=== PATIENT | male | born 1950 | race African-American/Black ===

== ENCOUNTER 2021-05-29 00:12 | Emergency (ER) | payer MEDICARE ==
[~2021-05-29] VITALS: Ht 185.4 cm; Wt 75.0 kg
[2021-05-29] MEDS ORDERED: SODIUM CHLORIDE 0.9% 1,000 ML IV ONE (00:45)
[2021-05-29 01:03] LABS: BASOPHILS % 0.3 % (0.0-2.0); EOSINOPHILS % 0.1 % (0.0-5.0); HEMATOCRIT. 42.5 % (42.0-52.0); HEMOGLOBIN. 14.2 g/dL (14.0-18.0); LYMPHOCYTES % 25.1 % (20.0-50.0); MEAN CORPUSCULAR HEMOGLOBIN 29.4 pg (28.0-32.0); MEAN CORPUSCULAR VOLUME 87.6 fL (80.0-94.0); MEAN PLATELET VOLUME 8.7 fl (7.4-10.4); MONOCYTES % 7.3 % (2.0-8.0); NEUTROPHILS % 67.2 % (40.0-76.0); PLATELET 122 x1000/uL (130-400); RED BLOOD CELL COUNT 4.85 mill/uL (4.7-6.1); RED CELL DISTRIBUTION WIDTH 13.5 % (11.6-14.6)
[2021-05-29 01:16] LABS: CHLORIDE 109 mEq/L (98-107)
[2021-05-29 03:45] VITALS: BP 126/61
== END 2021-05-29 04:15 | disposition home or self-care (01) ==
LOC: ER 00:12
DX: R42 Dizziness and giddiness (principal); R53.1 Weakness; R11.2 Nausea with vomiting, unspecified; F14.10 Cocaine abuse, uncomplicated; F17.290 Nicotine dependence, other tobacco product, uncomplicated; I10 Essential (primary) hypertension
CPT/HCPCS: 36415; 71045; 80053; 84484; 85025; 93005; 99283; 99406; J7030; 99284

== ENCOUNTER 2022-10-16 05:44 | Inpatient (IN) | payer MEDICARE ==
[~2022-10-16] VITALS: Ht 180.3 cm; Wt 62.6 kg
[2022-10-16] MEDS ORDERED: SPIRONOLACTONE 25MG TABLET PO STA (06:16)
[2022-10-16] MEDS ORDERED: CARVEDILOL 6.25 MG TABLET PO ONE (06:30)
[2022-10-16] MEDS ORDERED: HYDRALAZINE HCL 25MG TABLET PO ONE (06:30)
[2022-10-16] MEDS ORDERED: ENALAPRIL 5MG TABLET PO SCH (06:30)
[2022-10-16 06:42] LABS: BASOPHILS % 0.2 % (0.0-2.0); EOSINOPHILS % 0.4 % (0.0-5.0); HEMATOCRIT. 38.7 % (42.0-52.0); HEMOGLOBIN. 12.7 g/dL (14.0-18.0); MEAN CORPUSCULAR HEMOGLOBIN 29.2 pg (28.0-32.0); MEAN CORPUSCULAR VOLUME 88.8 fL (80.0-94.0); MEAN PLATELET VOLUME 10.3 fl (7.4-10.4); MONOCYTES % 7.6 % (2.0-8.0); NEUTROPHILS % 52.8 % (40.0-76.0); PLATELET 153 x1000/uL (130-400); RED BLOOD CELL COUNT 4.36 mill/uL (4.7-6.1)
[2022-10-16 06:52] LABS: CHLORIDE 109 mEq/L (98-107)
[2022-10-16 06:55] LABS: CLARITY URINE CLOUDY (CLEAR); COLOR URINE DARK YELLOW (YELLOW); KETONES URINE TRACE (NEGATIVE); LEUKOCYTE ESTERASE URINE 1+ (NEGATIVE); NITRITE URINE POSITIVE (NEGATIVE); OCCULT BLOOD URINE NEGATIVE (NEGATIVE); PH URINE 5.5 (4.5-8.0); PROTEIN URINE 1+ (NEGATIVE)
[2022-10-16] MEDS ORDERED: ACETAMINOPHEN 325MG TABLET PO ONE (07:15)
[2022-10-16] MEDS ORDERED: NITROGLYCERIN OINT 1GM/INCH UDPKT TD ONE (07:30)
[2022-10-16] MEDS ORDERED: ASPIRIN 325MG EC TABLET PO ONE (07:30)
[2022-10-16] MEDS ORDERED: FUROSEMIDE 20MG/2ML VIAL IVP ONE (08:30)
[2022-10-16] MEDS ORDERED: CLONIDINE 0.1MG TABLET PO PRN (13:45)
[2022-10-16] MEDS ORDERED: GUAIFENESIN 200MG/10ML SUGAR FREE UDC PO PRN (13:45)
[2022-10-16] MEDS ORDERED: ACETAMINOPHEN 325MG TABLET PO PRN ×2 (13:45)
[2022-10-16] MEDS ORDERED: IPRATROPIUM/ALBUTEROL 0.5-3(2.5)MG/3ML NEB HHN PRN (13:45)
[2022-10-16] MEDS ORDERED: ONDANSETRON HCL 4MG/2ML INJ IV PRN (13:45)
[2022-10-16] MEDS ORDERED: MAGNESIUM/ALUMINUM HYDROXIDE/SIMETHICONE 30ML UDC PO PRN (13:45)
[2022-10-16] MEDS ORDERED: DIPHENHYDRAMINE 50MG/ML VIAL IV PRN (13:45)
[2022-10-16] MEDS: GABAPENTIN 300MG CAPSULE PO SCH ×2 (14:00→21:06)
[2022-10-16] MEDS ORDERED: HYDROCODONE/ACETAMINOPHEN 5/325MG TABLET PO PRN (14:00)
[2022-10-16] MEDS ORDERED: MAGNESIUM HYDROXIDE 400MG/5ML 30ML UDC PO PRN (14:00)
[2022-10-16] MEDS ORDERED: NALOXONE HCL 0.4MG/ML VIAL IV PRN (14:15)
[2022-10-16] MEDS: SODIUM CHLORIDE 0.9% INJ 3ML FLUSH IVF SCH ×2 (14:45→21:07)
[2022-10-16] MEDS ORDERED: ENOXAPARIN 40MG/0.4ML SYR SUBCUT SCH (15:00)
[2022-10-16 16:00] VITALS: BP 138/89
[2022-10-16] MEDS: FUROSEMIDE 20MG/2ML VIAL IVP SCH (17:37)
[2022-10-16] MEDS: DOCUSATE SODIUM 100MG CAPSULE PO SCH (17:38)
[2022-10-16 18:29] VITALS: BP 131/78
[2022-10-16] MEDS ORDERED: CARV3.1242 MT (18:46)
[2022-10-16] MEDS ORDERED: ATOR10TA69 MT (18:46)
[2022-10-16] MEDS ORDERED: SPIR25TA6 MT (18:46)
[2022-10-16] MEDS ORDERED: GABA-529 MT (18:46)
[2022-10-16] MEDS ORDERED: ZOLPIDEM TARTRATE 5MG TABLET PO PRN ×2 (19:00→21:00)
[2022-10-16] MEDS ORDERED: BENZONATATE 100MG CAPSULE PO PRN (19:00)
[2022-10-16] MEDS ORDERED: PROMETHAZINE/DEXTROMETHORPHAN 6.25-15MG/5ML BOTTLE 120ML PO PRN (19:00)
[2022-10-16 20:53] VITALS: BP 144/95
[2022-10-16] MEDS: ATORVASTATIN CALCIUM 40MG TABLET PO SCH (21:06)
[2022-10-16] MEDS: CARVEDILOL 6.25 MG TABLET PO SCH (21:06)
[2022-10-16] MEDS: BUPROPION HCL 150MG SR TABLET PO SCH (21:06)
[2022-10-16] MEDS ORDERED: ALBUTEROL (0.083%) 2.5MG/3ML NEB HHN PRN (21:15)
[2022-10-16] MEDS ORDERED: IPRATROPIUM BROMIDE (0.02%) 0.5MG/2.5ML NEB HHN PRN (21:15)
[2022-10-17] VITALS: BP 122/68
[2022-10-17] MEDS: BUDESONIDE 0.5MG/2ML NEB HHN SCH ×3 (01:49→21:00)
[2022-10-17 04:00] VITALS: BP 134/86
[2022-10-17] MEDS: SODIUM CHLORIDE 0.9% INJ 3ML FLUSH IVF SCH ×3 (05:05→21:55)
[2022-10-17] MEDS: GABAPENTIN 300MG CAPSULE PO SCH ×3 (05:05→21:03)
[2022-10-17 05:37] LABS: BASOPHILS % 0.3 % (0.0-2.0); EOSINOPHILS % 0.9 % (0.0-5.0); HEMATOCRIT. 35.3 % (42.0-52.0); HEMOGLOBIN. 11.7 g/dL (14.0-18.0); LYMPHOCYTES % 41.1 % (20.0-50.0); MEAN CORPUSCULAR HEMOGLOBIN 29.2 pg (28.0-32.0); MEAN PLATELET VOLUME 10.1 fl (7.4-10.4); MONOCYTES % 9.6 % (2.0-8.0); NEUTROPHILS % 48.1 % (40.0-76.0); PLATELET 136 x1000/uL (130-400); RED BLOOD CELL COUNT 4.02 mill/uL (4.7-6.1); RED CELL DISTRIBUTION WIDTH 13.5 % (11.6-14.6)
[2022-10-17 05:42] LABS: CHLORIDE 106 mEq/L (98-107)
[2022-10-17 08:00] VITALS: BP 144/97
[2022-10-17] MEDS: BUPROPION HCL 150MG SR TABLET PO SCH ×2 (09:00→21:55)
[2022-10-17] MEDS: FUROSEMIDE 20MG/2ML VIAL IVP SCH ×2 (09:00→18:11)
[2022-10-17 10:18] LABS: *AMPHETAMINES SCREEN URINE NEGATIVE (NEGATIVE); *BARBITURATES SCREEN URINE NEGATIVE (NEGATIVE); *BENZODIAZEPINES SCREEN URINE NEGATIVE (NEGATIVE); *COCAINE SCREEN URINE PRESUMTIVE POSITIVE (NEGATIVE); CANNABINOID URINE SCREEN PRESUMTIVE POSITIVE (NEGATIVE); METHADONE URINE SCREEN NEGATIVE (NEGATIVE); OPIATES URINE SCREEN NEGATIVE (NEGATIVE); PHENCYCLIDINE URINE SCREEN NEGATIVE (NEGATIVE)
[2022-10-17] MEDS: SPIRONOLACTONE 25MG TABLET PO SCH (10:31)
[2022-10-17] MEDS: CARVEDILOL 6.25 MG TABLET PO SCH ×2 (10:32→21:04)
[2022-10-17] MEDS: DOCUSATE SODIUM 100MG CAPSULE PO SCH ×2 (10:32→18:11)
[2022-10-17 12:00] VITALS: BP 139/75
[2022-10-17] MEDS ORDERED: ENOXAPARIN 30MG/0.3ML SYR SUBCUT SCH (15:00)
[2022-10-17 16:00] VITALS: BP 110/65
[2022-10-17 20:00] VITALS: BP 124/79
[2022-10-17] MEDS: ATORVASTATIN CALCIUM 40MG TABLET PO SCH (21:03)
[2022-10-18] VITALS: BP 107/69
[2022-10-18 04:00] VITALS: BP 116/66
[2022-10-18] MEDS: GABAPENTIN 300MG CAPSULE PO SCH ×2 (05:10→13:55)
[2022-10-18 08:00] VITALS: BP 113/57
[2022-10-18 08:11] LABS: CHLORIDE 106 mEq/L (98-107)
[2022-10-18] MEDS: SPIRONOLACTONE 25MG TABLET PO SCH (09:00)
[2022-10-18] MEDS: CARVEDILOL 6.25 MG TABLET PO SCH (09:00)
[2022-10-18] MEDS: DOCUSATE SODIUM 100MG CAPSULE PO SCH (09:24)
[2022-10-18] MEDS: FUROSEMIDE 20MG/2ML VIAL IVP SCH (09:24)
[2022-10-18] MEDS: BUPROPION HCL 150MG SR TABLET PO SCH (09:25)
[2022-10-18] MEDS: BUDESONIDE 0.5MG/2ML NEB HHN SCH (09:27)
[2022-10-18 12:00] VITALS: BP 128/57
[2022-10-18 13:05] VITALS: BP 128/57
[2022-10-21] MEDS ORDERED: LOSA25TA3 PO (15:49)
[2022-10-21] MEDS ORDERED: FURO-151 PO (15:49)
[2022-10-21] MEDS ORDERED: SPIR25TA6 MT (15:49)
== END 2022-10-18 14:20 | disposition home or self-care (01) | DRG 291 ==
LOC: ER 05:44 → 7WST 08:56 → EDBEDREQ 09:16 → EDBEDREQTM 09:16
PROVIDERS: ADMIT Internal Medicine; ATTEND Internal Medicine
DX: I11.0 Hypertensive heart disease with heart failure (principal); I50.23 Acute on chronic systolic (congestive) heart failure; Z20.822 Contact with and (suspected) exposure to COVID-19; I42.0 Dilated cardiomyopathy; J44.9 Chronic obstructive pulmonary disease, unspecified; E78.00 Pure hypercholesterolemia, unspecified; I25.10 Atherosclerotic heart disease of native coronary artery without angina pectoris; R74.01 Elevation of levels of liver transaminase levels; F17.200 Nicotine dependence, unspecified, uncomplicated; F14.10 Cocaine abuse, uncomplicated; Z79.899 Other long term (current) drug therapy; Z91.14 Patient's other noncompliance with medication regimen
CPT/HCPCS: 36415; 71045; 80048; 80053; 80305; 81003; 83735; 83880; 84484; 85025; 87426; 87804; 93005; 93306; 94640; 99285; C9803; J1650; J1940; J7626

== ENCOUNTER 2022-10-19 06:46 | Inpatient (IN) | payer MEDICARE ==
[~2022-10-19] VITALS: Ht 180.3 cm; Wt 62.6 kg
[~2022-10-19 06:46] MED LIST: ATOR10TA69 MT; CARV3.1242 MT; GABA-529 MT; SPIR25TA6 MT
[2022-10-19] MEDS ORDERED: ALBUTEROL (0.083%) 2.5MG/3ML NEB HHN STA (07:26)
[2022-10-19] MEDS ORDERED: IPRATROPIUM BROMIDE (0.02%) 0.5MG/2.5ML NEB HHN STA (07:26)
[2022-10-19] MEDS ORDERED: NITROGLYCERIN 0.4MG TABLET SL SL PRN (07:45)
[2022-10-19 08:51] LABS: BASOPHILS % 0.4 % (0.0-2.0); EOSINOPHILS % 1.1 % (0.0-5.0); HEMATOCRIT. 36.8 % (42.0-52.0); HEMOGLOBIN. 12.1 g/dL (14.0-18.0); LYMPHOCYTES % 41.1 % (20.0-50.0); MEAN CORPUSCULAR HEMOGLOBIN 29.1 pg (28.0-32.0); MEAN CORPUSCULAR VOLUME 88.3 fL (80.0-94.0); NEUTROPHILS % 49.4 % (40.0-76.0); PLATELET 152 x1000/uL (130-400); RED BLOOD CELL COUNT 4.17 mill/uL (4.7-6.1); RED CELL DISTRIBUTION WIDTH 13.6 % (11.6-14.6)
[2022-10-19 09:00] LABS: CHLORIDE 105 mEq/L (98-107)
[2022-10-19] MEDS ORDERED: ALBUTEROL (0.083%) 2.5MG/3ML NEB HHN NR (09:30)
[2022-10-19] MEDS ORDERED: IPRATROPIUM BROMIDE (0.02%) 0.5MG/2.5ML NEB HHN NR (09:30)
[2022-10-19] MEDS ORDERED: DOCUSATE SODIUM 100MG CAPSULE PO PRN (11:45)
[2022-10-19] MEDS ORDERED: ACETAMINOPHEN 325MG TABLET PO PRN ×2 (11:45)
[2022-10-19] MEDS ORDERED: CLONIDINE 0.1MG TABLET PO PRN (11:45)
[2022-10-19] MEDS ORDERED: IPRATROPIUM/ALBUTEROL 0.5-3(2.5)MG/3ML NEB NEB PRN (11:45)
[2022-10-19] MEDS ORDERED: GUAIFENESIN 200MG/10ML SUGAR FREE UDC PO PRN (11:45)
[2022-10-19] MEDS ORDERED: NALOXONE HCL 0.4MG/ML VIAL IV PRN (11:45)
[2022-10-19] MEDS ORDERED: MAGNESIUM/ALUMINUM HYDROXIDE/SIMETHICONE 30ML UDC PO PRN (11:45)
[2022-10-19] MEDS ORDERED: ONDANSETRON HCL 4MG/2ML INJ IV PRN (11:45)
[2022-10-19] MEDS ORDERED: HYDROCODONE/ACETAMINOPHEN 5/325MG TABLET PO PRN (11:45)
[2022-10-19] MEDS: ENOXAPARIN 40MG/0.4ML SYR SUBCUT SCH (12:20)
[2022-10-19] MEDS: CARVEDILOL 3.125 MG TABLET PO SCH ×2 (12:20→21:58)
[2022-10-20] MEDS: CARVEDILOL 3.125 MG TABLET PO SCH ×2 (09:15→21:11)
[2022-10-20 11:30] VITALS: BP 128/68
[2022-10-20 12:00] VITALS: BP 128/68
[2022-10-20] MEDS: ENOXAPARIN 40MG/0.4ML SYR SUBCUT SCH (15:17)
[2022-10-20 16:00] VITALS: BP 135/85
[2022-10-20] MEDS ORDERED: INFLUENZA VACCINE 05/PF 0.5 ML SYRINGE IM ONE (17:00)
[2022-10-20] MEDS ORDERED: PNEUMOCOCCAL 23-VAL P-SAC VAC 0.5 ML IM ONE (17:00)
[2022-10-20 17:12] LABS: BASOPHILS % 0.3 % (0.0-2.0); EOSINOPHILS % 1.1 % (0.0-5.0); HEMATOCRIT. 34.6 % (42.0-52.0); HEMOGLOBIN. 11.4 g/dL (14.0-18.0); MEAN CORPUSCULAR HEMOGLOBIN 29.3 pg (28.0-32.0); MEAN CORPUSCULAR VOLUME 89.4 fL (80.0-94.0); MEAN PLATELET VOLUME 10.9 fl (7.4-10.4); MONOCYTES % 9.2 % (2.0-8.0); NEUTROPHILS % 46.4 % (40.0-76.0); PLATELET 132 x1000/uL (130-400); RED BLOOD CELL COUNT 3.87 mill/uL (4.7-6.1); RED CELL DISTRIBUTION WIDTH 13.7 % (11.6-14.6)
[2022-10-20 17:45] LABS: CHLORIDE 109 mEq/L (98-107)
[2022-10-20 17:47] LABS: CREATINE KINASE MB FRACTION 1.3 ng/mL (0.5-3.6)
[2022-10-20 17:57] LABS: T4 FREE 1.32 ng/dL (0.76-1.46)
[2022-10-20 20:00] VITALS: BP 138/92
[2022-10-20] MEDS ORDERED: ALBUTEROL (0.083%) 2.5MG/3ML NEB HHN PRN (20:00)
[2022-10-20] MEDS ORDERED: IPRATROPIUM BROMIDE (0.02%) 0.5MG/2.5ML NEB HHN PRN (20:00)
[2022-10-20 23:55] LABS: CREATINE KINASE MB FRACTION 1.2 ng/mL (0.5-3.6)
[2022-10-21] VITALS (7 sets, daily range): BP systolic 131–152; BP diastolic 83–104
[2022-10-21 06:22] LABS: CHLORIDE 110 mEq/L (98-107)
[2022-10-21 06:36] LABS: CREATINE KINASE 51 IU/L (39-308); CREATINE KINASE MB FRACTION 1.3 ng/mL (0.5-3.6); PHOSPHORUS 3.1 mg/dL (2.5-4.9)
[2022-10-21 07:07] LABS: HEMATOCRIT. 33.6 % (42.0-52.0); HEMOGLOBIN. 11.1 g/dL (14.0-18.0); MEAN CORPUSCULAR HEMOGLOBIN 29.2 pg (28.0-32.0); MEAN CORPUSCULAR VOLUME 88.2 fL (80.0-94.0); MEAN PLATELET VOLUME 10.7 fl (7.4-10.4); PLATELET 129 x1000/uL (130-400); RED CELL DISTRIBUTION WIDTH 13.9 % (11.6-14.6)
[2022-10-21] MEDS: CARVEDILOL 3.125 MG TABLET PO SCH (08:49)
[2022-10-21] MEDS ORDERED: LOSARTAN POTASSIUM 25 MG TABLET PO SCH (11:15)
[2022-10-21] MEDS: ENOXAPARIN 40MG/0.4ML SYR SUBCUT SCH (12:18)
[2022-10-21] MEDS ORDERED: FURO-151 PO (15:49)
[2022-10-21] MEDS ORDERED: LOSA25TA3 PO (15:49)
[2022-10-21] MEDS ORDERED: SPIR25TA6 MT (15:49)
[2022-10-21 17:07] LABS: PLATELET ESTIMATE SLIGHTLY DECREASED
== END 2022-10-21 20:45 | disposition home or self-care (01) | DRG 291 ==
LOC: ER 06:46 → MICUSO 11:07 → EDBEDREQTM 11:08 → EDBEDREQ 11:08 → SUPCPDRO 11:24 → 7WST 10-20 11:21
PROVIDERS: ADMIT Internal Medicine; ATTEND Internal Medicine
PROC: 3E02340 Introduction of Influenza Vaccine into Muscle, Percutaneous Approach (ICD-10-PCS; principal; 2022-10-20)
PROC: 3E0234Z Introduction of Serum, Toxoid and Vaccine into Muscle, Percutaneous Approach (ICD-10-PCS; 2022-10-20)
DX: I11.0 Hypertensive heart disease with heart failure (principal); I50.23 Acute on chronic systolic (congestive) heart failure; I42.0 Dilated cardiomyopathy; I34.0 Nonrheumatic mitral (valve) insufficiency; H54.7 Unspecified visual loss; F14.90 Cocaine use, unspecified, uncomplicated; I25.10 Atherosclerotic heart disease of native coronary artery without angina pectoris; E78.00 Pure hypercholesterolemia, unspecified; F17.200 Nicotine dependence, unspecified, uncomplicated; Z20.822 Contact with and (suspected) exposure to COVID-19; Z82.49 Family history of ischemic heart disease and other diseases of the circulatory system; Z23 Encounter for immunization
CPT/HCPCS: 36415; 71045; 80048; 80053; 80061; 82550; 82553; 83036; 83735; 83880; 84100; 84439; 84443; 84484; 85025; 85379; 87340; 87426; 87804; 90686; 90732; 93005; 94640; 99285; J1650

== ENCOUNTER 2022-11-13 12:07 | Inpatient (IN) | payer MEDICARE ==
[~2022-11-13] VITALS: Ht 180.3 cm; Wt 65.3 kg
[~2022-11-13 12:07] MED LIST changes: -CARV3.1242 MT; +FURO-151 PO; +LOSA25TA3 PO
[2022-11-13 20:57] LABS: BASOPHILS % 0.4 % (0.0-2.0); EOSINOPHILS % 0.2 % (0.0-5.0); HEMATOCRIT. 43.2 % (42.0-52.0); HEMOGLOBIN. 13.9 g/dL (14.0-18.0); LYMPHOCYTES % 28.4 % (20.0-50.0); MEAN CORPUSCULAR HEMOGLOBIN 28.5 pg (28.0-32.0); MEAN CORPUSCULAR VOLUME 88.4 fL (80.0-94.0); MEAN PLATELET VOLUME 9.9 fl (7.4-10.4); MONOCYTES % 7.3 % (2.0-8.0); NEUTROPHILS % 63.7 % (40.0-76.0); PLATELET 158 x1000/uL (130-400); RED BLOOD CELL COUNT 4.88 mill/uL (4.7-6.1); RED CELL DISTRIBUTION WIDTH 14.6 % (11.6-14.6)
[2022-11-13 21:04] LABS: CHLORIDE 107 mEq/L (98-107)
[2022-11-14] MEDS ORDERED: FUROSEMIDE 40MG TABLET PO ONE
[2022-11-14] MEDS ORDERED: DOCUSATE SODIUM 100MG CAPSULE PO PRN (02:00)
[2022-11-14] MEDS ORDERED: MAGNESIUM/ALUMINUM HYDROXIDE/SIMETHICONE 30ML UDC PO PRN (02:00)
[2022-11-14] MEDS ORDERED: CLONIDINE 0.1MG TABLET PO PRN (02:00)
[2022-11-14] MEDS ORDERED: ACETAMINOPHEN 325MG TABLET PO PRN (02:00)
[2022-11-14] MEDS ORDERED: IPRATROPIUM/ALBUTEROL 0.5-3(2.5)MG/3ML NEB NEB PRN (02:00)
[2022-11-14] MEDS ORDERED: ONDANSETRON HCL 4MG/2ML INJ IV PRN (02:00)
[2022-11-14] MEDS ORDERED: GUAIFENESIN 200MG/10ML SUGAR FREE UDC PO PRN (02:00)
[2022-11-14] MEDS ORDERED: ALBUTEROL (0.083%) 2.5MG/3ML NEB HHN PRN (02:30)
[2022-11-14] MEDS ORDERED: IPRATROPIUM BROMIDE (0.02%) 0.5MG/2.5ML NEB HHN PRN (02:30)
[2022-11-14] MEDS ORDERED: FUROSEMIDE 40MG TABLET PO NR (03:00)
[2022-11-14 06:35] LABS: CLARITY URINE CLEAR (CLEAR); COLOR URINE YELLOW (YELLOW); KETONES URINE NEGATIVE (NEGATIVE); LEUKOCYTE ESTERASE URINE NEGATIVE (NEGATIVE); NITRITE URINE NEGATIVE (NEGATIVE); OCCULT BLOOD URINE NEGATIVE (NEGATIVE); PROTEIN URINE NEGATIVE (NEGATIVE); SPECIFIC GRAVITY URINE 1.009 (1.005-1.030); UROBILINOGEN URINE 0.2 E.U./dL (0.2-1.0)
[2022-11-14 09:35] LABS: *AMPHETAMINES SCREEN URINE NEGATIVE (NEGATIVE); *BARBITURATES SCREEN URINE NEGATIVE (NEGATIVE); *BENZODIAZEPINES SCREEN URINE NEGATIVE (NEGATIVE); *COCAINE SCREEN URINE PRESUMTIVE POSITIVE (NEGATIVE); CANNABINOID URINE SCREEN NEGATIVE (NEGATIVE); METHADONE URINE SCREEN NEGATIVE (NEGATIVE); OPIATES URINE SCREEN NEGATIVE (NEGATIVE); PHENCYCLIDINE URINE SCREEN NEGATIVE (NEGATIVE)
[2022-11-14 09:45] LABS: BASOPHILS % 0.3 % (0.0-2.0); EOSINOPHILS % 0.2 % (0.0-5.0); HEMATOCRIT. 39.9 % (42.0-52.0); HEMOGLOBIN. 13.1 g/dL (14.0-18.0); LYMPHOCYTES % 30.2 % (20.0-50.0); MEAN CORPUSCULAR HEMOGLOBIN 28.8 pg (28.0-32.0); MEAN PLATELET VOLUME 9.9 fl (7.4-10.4); MONOCYTES % 6.9 % (2.0-8.0); NEUTROPHILS % 62.4 % (40.0-76.0); PLATELET 150 x1000/uL (130-400); RED BLOOD CELL COUNT 4.53 mill/uL (4.7-6.1); RED CELL DISTRIBUTION WIDTH 14.2 % (11.6-14.6)
[2022-11-14] MEDS: FUROSEMIDE 40MG/4ML VIAL IV SCH ×2 (09:45→17:00)
[2022-11-14] MEDS: ENOXAPARIN 30MG/0.3ML SYR SUBCUT SCH (09:45)
[2022-11-14] MEDS: THIAMINE HCL 100MG TABLET PO SCH (09:46)
[2022-11-14 10:04] LABS: T4 FREE 1.63 ng/dL (0.76-1.46)
[2022-11-14] MEDS ORDERED: NITROGLYCERIN 50MCG/ML 10ML VIAL (CATH LAB) IV ONE (10:06)
[2022-11-14] MEDS ORDERED: NICARDIPINE 100MCG/ML 10ML VIAL (CATH LAB) IV ONE (10:06)
[2022-11-14 10:08] LABS: PHOSPHORUS 3.2 mg/dL (2.5-4.9)
[2022-11-14] MEDS ORDERED: IPRATROPIUM/ALBUTEROL 0.5-3(2.5)MG/3ML NEB HHN SCH (12:00)
[2022-11-14] MEDS: LOSARTAN POTASSIUM 25 MG TABLET PO SCH (12:30)
[2022-11-14 13:50] LABS: HEPATITIS B SURFACE ANTIGEN NEGATIVE
[2022-11-14] MEDS ORDERED: MIDAZOLAM HCL 2 MG/2 ML VIAL ONE (16:27)
[2022-11-14] MEDS ORDERED: HEPARIN 1000 UNITS/ML 10ML ONE (16:27)
[2022-11-14] MEDS ORDERED: IODIXANOL 320MG/ML 100 ML BOTTLE IV ONE (16:27)
[2022-11-14] MEDS ORDERED: FENTANYL CITRATE/PF 50MCG/ML 2ML VIAL ONE (16:28)
[2022-11-14] MEDS ORDERED: LIDOCAINE HCL/PF 1% 10 MG/ML 5ML VIAL ONE (16:41)
[2022-11-14] MEDS ORDERED: ATROPINE SULFATE 1MG/10ML SYR IV PRN (17:00)
[2022-11-14] MEDS ORDERED: SPIRONOLACTONE 5MG/ML 1ML ORAL SYR(NEO) PO SCH (21:00)
[2022-11-14] MEDS ORDERED: ATORVASTATIN CALCIUM 10MG TABLET PO SCH (21:00)
[2022-11-14 21:15] VITALS: BP 146/86
[2022-11-14] MEDS: GABAPENTIN 100MG CAPSULE PO SCH (21:44)
[2022-11-14] MEDS: SPIRONOLACTONE 25MG TABLET PO SCH (21:44)
[2022-11-14 21:47] LABS: CREATINE KINASE MB FRACTION 1.9 ng/mL (0.5-3.6)
[2022-11-14] MEDS: ATORVASTATIN CALCIUM 10MG TABLET PO SCH (21:47)
[2022-11-14] MEDS: ACETAMINOPHEN 325MG TABLET PO PRN (22:03)
[2022-11-14 23:30] VITALS: BP 146/86
[2022-11-14 23:56] LABS: CREATINE KINASE MB FRACTION 1.6 ng/mL (0.5-3.6)
[2022-11-15] VITALS: BP 129/80
[2022-11-15 04:00] VITALS: BP 148/51
[2022-11-15] MEDS: IPRATROPIUM BROMIDE (0.02%) 0.5MG/2.5ML NEB HHN SCH ×4 (04:52→20:49)
[2022-11-15] MEDS: ALBUTEROL (0.083%) 2.5MG/3ML NEB HHN SCH ×4 (04:53→20:49)
[2022-11-15 07:06] LABS: CHLORIDE 106 mEq/L (98-107)
[2022-11-15 07:16] LABS: CREATINE KINASE 39 IU/L (39-308); CREATINE KINASE MB FRACTION 1.3 ng/mL (0.5-3.6)
[2022-11-15] MEDS: BUDESONIDE 0.5MG/2ML NEB HHN SCH ×2 (07:48→20:50)
[2022-11-15 08:00] VITALS: BP 139/92
[2022-11-15] MEDS: FUROSEMIDE 40MG/4ML VIAL IV SCH ×2 (10:41→17:00)
[2022-11-15] MEDS: ENOXAPARIN 30MG/0.3ML SYR SUBCUT SCH (10:41)
[2022-11-15] MEDS: THIAMINE HCL 100MG TABLET PO SCH (10:42)
[2022-11-15] MEDS: LOSARTAN POTASSIUM 25 MG TABLET PO SCH (10:42)
[2022-11-15] MEDS: GABAPENTIN 100MG CAPSULE PO SCH ×3 (10:42→21:00)
[2022-11-15 12:00] VITALS: BP 115/70
[2022-11-15] MEDS ORDERED: IOHEXOL-300 100 ML BOTTLE ONE ×2 (13:02→23:04)
[2022-11-15 16:00] VITALS: BP 139/92
[2022-11-15 20:00] VITALS: BP 134/74
[2022-11-15] MEDS: ATORVASTATIN CALCIUM 10MG TABLET PO SCH (21:40)
[2022-11-15] MEDS: SPIRONOLACTONE 25MG TABLET PO SCH (21:41)
[2022-11-16] VITALS: BP 127/85
[2022-11-16] MEDS: ALBUTEROL (0.083%) 2.5MG/3ML NEB HHN SCH ×4 (02:25→20:49)
[2022-11-16] MEDS: IPRATROPIUM BROMIDE (0.02%) 0.5MG/2.5ML NEB HHN SCH ×4 (02:25→20:48)
[2022-11-16 04:00] VITALS: BP 125/82
[2022-11-16 08:00] VITALS: BP 124/72
[2022-11-16] MEDS: BUDESONIDE 0.5MG/2ML NEB HHN SCH ×2 (08:11→20:48)
[2022-11-16 08:14] LABS: HEMATOCRIT. 40.1 % (42.0-52.0); HEMOGLOBIN. 13.3 g/dL (14.0-18.0); MEAN CORPUSCULAR HEMOGLOBIN 28.9 pg (28.0-32.0); MEAN CORPUSCULAR VOLUME 87.1 fL (80.0-94.0); PLATELET 147 x1000/uL (130-400); RED CELL DISTRIBUTION WIDTH 14.1 % (11.6-14.6)
[2022-11-16 08:22] LABS: INR 1.2; PROTHROMBIN TIME 12.4 sec (9.6-11.0)
[2022-11-16] MEDS: LOSARTAN POTASSIUM 25 MG TABLET PO SCH (09:02)
[2022-11-16] MEDS: FUROSEMIDE 40MG/4ML VIAL IV SCH ×2 (09:02→17:30)
[2022-11-16] MEDS: GABAPENTIN 100MG CAPSULE PO SCH ×3 (09:02→21:28)
[2022-11-16] MEDS: THIAMINE HCL 100MG TABLET PO SCH (09:02)
[2022-11-16 09:19] LABS: CHLORIDE 103 mEq/L (98-107)
[2022-11-16 09:24] LABS: PLATELET ESTIMATE NORMAL
[2022-11-16 12:00] VITALS: BP 100/57
[2022-11-16 16:00] VITALS: BP 116/63
[2022-11-16 20:00] VITALS: BP 117/78
[2022-11-16] MEDS: ATORVASTATIN CALCIUM 10MG TABLET PO SCH (21:23)
[2022-11-16] MEDS: SPIRONOLACTONE 25MG TABLET PO SCH (21:24)
[2022-11-17] VITALS (16 sets, daily range): BP systolic 95–138; BP diastolic 60–94
[2022-11-17] MEDS: IPRATROPIUM BROMIDE (0.02%) 0.5MG/2.5ML NEB HHN SCH ×4 (03:13→20:42)
[2022-11-17] MEDS: ALBUTEROL (0.083%) 2.5MG/3ML NEB HHN SCH ×4 (03:13→20:42)
[2022-11-17 06:13] LABS: HEMATOCRIT. 43.6 % (42.0-52.0); HEMOGLOBIN. 14.2 g/dL (14.0-18.0); MEAN CORPUSCULAR HEMOGLOBIN 28.4 pg (28.0-32.0); MEAN CORPUSCULAR VOLUME 87.4 fL (80.0-94.0); MEAN PLATELET VOLUME 10.3 fl (7.4-10.4); PLATELET 173 x1000/uL (130-400); RED BLOOD CELL COUNT 4.99 mill/uL (4.7-6.1); RED CELL DISTRIBUTION WIDTH 14.2 % (11.6-14.6)
[2022-11-17 06:23] LABS: INR 1.1
[2022-11-17] MEDS ORDERED: LIDOCAINE HCL 1% 10 MG/ML 10ML VIAL ONE (09:47)
[2022-11-17] MEDS ORDERED: FENTANYL CITRATE/PF 50MCG/ML 2ML VIAL ONE (09:47)
[2022-11-17] MEDS ORDERED: SODIUM BICARBONATE 4% (2.4MEQ) 5ML VIAL IV ONE (09:47)
[2022-11-17] MEDS ORDERED: FENTANYL CITRATE/PF 50MCG/ML 2ML VIAL IV ONE (10:30)
[2022-11-17] MEDS: FUROSEMIDE 40MG/4ML VIAL IV SCH ×2 (10:57→17:13)
[2022-11-17] MEDS: LOSARTAN POTASSIUM 25 MG TABLET PO SCH (10:57)
[2022-11-17] MEDS: THIAMINE HCL 100MG TABLET PO SCH (10:57)
[2022-11-17] MEDS: GABAPENTIN 100MG CAPSULE PO SCH ×3 (10:57→21:02)
[2022-11-17 13:33] LABS: PLATELET ESTIMATE NORMAL
[2022-11-17 14:55] LABS: HEMATOCRIT 43.8 % (42.0-52.0); HEMOGLOBIN 14.3 g/dL (14.0-18.0)
[2022-11-17] MEDS: BUDESONIDE 0.5MG/2ML NEB HHN SCH (17:39)
[2022-11-17] MEDS: ATORVASTATIN CALCIUM 10MG TABLET PO SCH (21:02)
[2022-11-17] MEDS: ACETAMINOPHEN 325MG TABLET PO PRN (21:05)
[2022-11-17] MEDS: SPIRONOLACTONE 25MG TABLET PO SCH (21:05)
[2022-11-18] VITALS: BP 108/70
[2022-11-18] MEDS: IPRATROPIUM BROMIDE (0.02%) 0.5MG/2.5ML NEB HHN SCH ×3 (02:18→13:54)
[2022-11-18] MEDS: ALBUTEROL (0.083%) 2.5MG/3ML NEB HHN SCH ×3 (02:18→13:54)
[2022-11-18 04:00] VITALS: BP 136/82
[2022-11-18 04:07] LABS: HIV SCREEN 4G Non Reactive (Non Reactive)
[2022-11-18 06:06] LABS: BASOPHILS % 0.2 % (0.0-2.0); EOSINOPHILS % 0.6 % (0.0-5.0); HEMATOCRIT. 44.8 % (42.0-52.0); LYMPHOCYTES % 36.5 % (20.0-50.0); MEAN CORPUSCULAR HEMOGLOBIN 28.7 pg (28.0-32.0); MEAN CORPUSCULAR VOLUME 85.9 fL (80.0-94.0); MEAN PLATELET VOLUME 9.8 fl (7.4-10.4); MONOCYTES % 7.6 % (2.0-8.0); NEUTROPHILS % 55.1 % (40.0-76.0); PLATELET 179 x1000/uL (130-400); RED BLOOD CELL COUNT 5.22 mill/uL (4.7-6.1); RED CELL DISTRIBUTION WIDTH 14.2 % (11.6-14.6)
[2022-11-18 08:00] VITALS: BP 157/93
[2022-11-18] MEDS: FUROSEMIDE 40MG/4ML VIAL IV SCH (08:29)
[2022-11-18] MEDS: GABAPENTIN 100MG CAPSULE PO SCH (08:29)
[2022-11-18] MEDS: THIAMINE HCL 100MG TABLET PO SCH (08:29)
[2022-11-18] MEDS: LOSARTAN POTASSIUM 25 MG TABLET PO SCH (08:29)
[2022-11-18 12:00] VITALS: BP 109/65
[2022-11-18 15:17] VITALS: BP 116/81
[2022-11-18 16:00] VITALS: BP 119/75
[2022-11-18] MEDS ORDERED: GABA-529 PO (17:29)
[2022-11-18] MEDS ORDERED: LOSA25TA3 PO (17:29)
[2022-11-18] MEDS ORDERED: THIA100T72 PO (17:29)
[2022-11-18] MEDS ORDERED: SPIR25TA PO (17:29)
[2022-11-18] MEDS ORDERED: FURO-151 PO (17:29)
[2022-11-18] MEDS ORDERED: ATOR10TA PO (17:29)
[2022-11-19] MEDS ORDERED: FUROSEMIDE 40MG/4ML VIAL IV SCH (09:00)
== END 2022-11-18 17:15 | disposition home health service (06) | DRG 280 ==
LOC: ER 12:17 → MICUSO 11-14 01:28 → EDBEDREQTM 11-14 01:34 → EDBEDREQSVC 11-14 01:34 → EDBEDREQ 11-14 01:34 → 7EST 11-14 15:56
PROVIDERS: ADMIT Internal Medicine; ATTEND Internal Medicine
PROC: 4A023N7 Measurement of Cardiac Sampling and Pressure, Left Heart, Percutaneous Approach (ICD-10-PCS; principal; 2022-11-14)
PROC: B2111ZZ Fluoroscopy of Multiple Coronary Arteries using Low Osmolar Contrast (ICD-10-PCS; 2022-11-14)
PROC: B2151ZZ Fluoroscopy of Left Heart using Low Osmolar Contrast (ICD-10-PCS; 2022-11-14)
PROC: 0FB03ZX Excision of Liver, Percutaneous Approach, Diagnostic (ICD-10-PCS; 2022-11-17)
DX: I11.0 Hypertensive heart disease with heart failure (principal); I21.A1 Myocardial infarction type 2; I50.23 Acute on chronic systolic (congestive) heart failure; J96.00 Acute respiratory failure, unspecified whether with hypoxia or hypercapnia; J68.0 Bronchitis and pneumonitis due to chemicals, gases, fumes and vapors; C78.7 Secondary malignant neoplasm of liver and intrahepatic bile duct; N17.9 Acute kidney failure, unspecified; I42.7 Cardiomyopathy due to drug and external agent; I25.10 Atherosclerotic heart disease of native coronary artery without angina pectoris; K76.9 Liver disease, unspecified; E78.00 Pure hypercholesterolemia, unspecified; E80.6 Other disorders of bilirubin metabolism; F14.10 Cocaine abuse, uncomplicated; F12.10 Cannabis abuse, uncomplicated; R73.9 Hyperglycemia, unspecified; Z20.822 Contact with and (suspected) exposure to COVID-19; D64.9 Anemia, unspecified; H54.8 Legal blindness, as defined in USA; F10.10 Alcohol abuse, uncomplicated; F17.210 Nicotine dependence, cigarettes, uncomplicated; I34.0 Nonrheumatic mitral (valve) insufficiency; B18.2 Chronic viral hepatitis C; Z93.3 Colostomy status; Z91.199 Patient's noncompliance with other medical treatment and regimen due to unspecified reason; Z85.038 Personal history of other malignant neoplasm of large intestine; Z79.899 Other long term (current) drug therapy; Z82.49 Family history of ischemic heart disease and other diseases of the circulatory system
CPT/HCPCS: 36415; 71045; 71260; 74177; 76700; 76942; 80048; 80053; 80061; 80076; 80305; 81003; 82105; 82248; 82378; 82550; 82553; 83036; 83735; 83880; 84100; 84439; 84443; 84484; 85014; 85018; 85025; 85379; 86301; 87389; 87426; 88307; 93005; 93458; 93970; 94640; 97162; 97166; 99285; C1769; C1887; C1893; J1644; J1650; J1940; J2250; J3010; J3490; J7626; Q9967